=== PATIENT | female | born 1960 | race African-American/Black ===

== ENCOUNTER 2017-04-29 08:22 | Emergency (ER) | payer OTHER, SELFPAY | END 2017-04-29 08:54 | disposition home or self-care (01) | LOC: ERS 08:22 | DX: J06.9 Acute upper respiratory infection, unspecified (principal); I10 Essential (primary) hypertension; F41.9 Anxiety disorder, unspecified; F32.9 Major depressive disorder, single episode, unspecified; F17.210 Nicotine dependence, cigarettes, uncomplicated | CPT/HCPCS: 99283 ==

== ENCOUNTER 2017-09-10 14:41 | Outpatient (CLI) | payer OTHER | END 2017-09-10 14:42 | disposition home or self-care (01) | LOC: BICMAMMO 14:41 | PROVIDERS: ATTEND Student in an Organized Health Care Education/Training Program | DX: N63.20 Unspecified lump in the left breast, unspecified quadrant (principal); Z80.3 Family history of malignant neoplasm of breast | CPT/HCPCS: 77066; G0279 ==

== ENCOUNTER 2018-12-18 09:25 | Outpatient (CLI) | payer MEDICARE ==
--- NOTE | 2018-12-18 12:46 | MRI ---
MRI LEFT KNEE: Date: 12/18/18 PROVIDED CLINICAL HISTORY: Left knee pain and swelling. FINDINGS: Comparison with 08/27/14. The anterior cruciate ligament, posterior cruciate ligament, medial collateral ligament, and lateral collateral ligamentous complex demonstrate an intact MR appearance, as does the extensor mechanism. There is a complex nondisplaced tear involving the body and posterior horn of the medial meniscus, edgar ving a primarily parrot-beak type morphology. The lateral meniscus demonstrates no evidence for tear. No focal articular cartilage defect is apparent. Signal inhomogeneity involves the median ridge of th e patella, likely reflecting low grade chondrosis. There is marrow edema within the medial femoral condyles centrally presumably reactive to the menisca l tear. Regional marrow and muscular signal appear otherwise unremarkable. There is a mild-moderate knee joint effusion with Galvan's cyst formation. IMPRESSION: 1. Medial meniscal tear as described. 2. Low grade patellar chondrosis. 3. Mild-moderate knee joint effusion with Galvan's cyst formation. POS: OFF
== END 2018-12-18 09:26 | disposition home or self-care (01) ==
LOC: BICMRI 09:25
PROVIDERS: ATTEND Orthopaedic Surgery
DX: M23.92 Unspecified internal derangement of left knee (principal); M25.462 Effusion, left knee; M22.2X2 Patellofemoral disorders, left knee; M71.22 Synovial cyst of popliteal space [Baker], left knee

== ENCOUNTER 2019-01-14 11:00 | Outpatient (CLI) | payer MEDICARE ==
[2019-01-14 11:55] LABS: #Basophils 0.1 thou/uL (0.0-0.2); #Eosinphils 0.1 thou/uL (0.0-0.7); #Lymphocytes 3.9 thou/uL (1.20-3.40); #Monocytes 0.9 thou/uL (0.11-0.59); #Neutrophils 4.6 thou/uL (1.40-6.50); %Basophils 0.7 % (0.0-1.0); %Eosinophils 0.9 % (0.0-10.0); %Lymphocytes 40.6 % (21.0-51.0); %Monocytes 9.5 % (0.0-10.0); %Neutrophils 48.3 % (42.0-75.0); Hemoglobin 13.2 g/dL (12.0-16.0); Mean Corpuscular HGB CONC 33.1 g/dL (32.0-36.0); Mean Corpuscular Hemoglobin 29.6 pg (27.0-31.0); Mean Corpuscular Volume 89.5 fL (78.0-98.0); Mean Platelet Volume 8.6 fL (7.4-10.4); Platelet Count 275 thou/uL (130-400); RBC Distribution Width 13.5 % (11.5-14.5); Red Blood Cell (RBC) Count 4.46 mill/uL (4.20-5.40); White Blood Cell (WBC) Count 9.5 thou/uL (4.8-10.8)
[2019-01-14 12:22] LABS: Anion Gap 11 mmol/L (10-20); BUN (Urea Nitrogen) 13 mg/dL (9.8-20.1); Calc. Creatinine Clearance 0 mL/min (70-130); Calcium 9.6 mg/dL (7.8-10.44); Carbon Dioxide 30 mmol/L (22-29); Chloride 104 mmol/L (98-107); Estimated GFR-MDRD 84; Glucose 107 mg/dL (70-105); Potassium 3.5 mmol/L (3.5-5.1); Sodium 141 mmol/L (136-145)
== END 2019-01-14 11:01 | disposition home or self-care (01) ==
LOC: LABBT 11:00
PROVIDERS: ATTEND Orthopaedic Surgery
DX: Z01.818 Encounter for other preprocedural examination (principal); S83.242D Other tear of medial meniscus, current injury, left knee, subsequent encounter
CPT/HCPCS: 80048; 85025; 93005; 93010

== ENCOUNTER 2019-01-22 07:21 | Day surgery (SDC) | payer MEDICARE ==
[2019-01-14 11:13] VITALS: BMI 36.9
[2019-01-22] MEDS ORDERED: PROPOFOL 20 ML ONE (08:20)
[2019-01-22] MEDS ORDERED: Bupivacaine HCl 0.5%/Epinephrine 1:200,000/PF 30 ml Vial ONE (09:43)
[2019-01-22] MEDS ORDERED: Ropivacaine 0.2% HCl/PF (40 MG/20 ML VIAL) ONE (09:43)
[2019-01-22] MEDS ORDERED: Ketorolac Tromethamine 30 MG/ML VIAL ONE (09:52)
[2019-01-22] MEDS ORDERED: Dexamethasone 20 MG/5 ML VIAL ONE (09:52)
[2019-01-22] MEDS ORDERED: PROPOFOL 200 MG/20 ML VIAL ONE (09:52)
[2019-01-22] MEDS ORDERED: Ondansetron PF 4 MG/2 ML Vial ONE (09:52)
[2019-01-22] MEDS ORDERED: HYDROcodone/Acetaminophen 5/325 mg Tablet ONE ×2 (11:24)
--- NOTE | 2019-01-22 12:58 | OP ---
DATE OF PROCEDURE: 01/22/2019 PREOPERATIVE DIAGNOSIS: Medial meniscus tear, left knee. POSTOPERATIVE DIAGNOSIS: Medial meniscus tear, left knee. PROCEDURE PERFORMED: Arthroscopic partial medial meniscectomy. ANESTHESIA: General. ESTIMATED BLOOD LOSS: Minimal. SPECIMENS: None. DRAINS: None. COMPLICATIONS: None. FINDINGS OF SURGERY: Posterior horn of medial meniscus tear, intact lateral meniscus, intact ACL. Really minimal degenerative changes throughout the knee, grade 2 medial femoral condyle. DESCRIPTION OF PROCEDURE: The patient was taken to the operating room, where general anesthesia was induced. She was seen and answered preoperatively. Left leg was prepped and draped in sterile fashion. Scope was placed in the lateral portal, probe was placed in the medial portal. Findings were as above. I performed a partial medial meniscectomy using basket forceps and smoothed using a 4.0 full-radius resector. I then probed the posterior horn of the medial meniscus and confirmed it was stable. Knee was irrigated and drained. Sterile dressings applied. Job ID: [id number]
== END 2019-01-22 13:45 | disposition home or self-care (01) ==
LOC: SDC 07:21
PROVIDERS: ATTEND Orthopaedic Surgery
PROC: 0SBD4ZZ Excision of Left Knee Joint, Percutaneous Endoscopic Approach (ICD-10-PCS; principal; 2019-01-22)
DX: S83.242A Other tear of medial meniscus, current injury, left knee, initial encounter (principal); I10 Essential (primary) hypertension; E78.5 Hyperlipidemia, unspecified; X58.XXXA Exposure to other specified factors, initial encounter; Z79.899 Other long term (current) drug therapy; Z88.5 Allergy status to narcotic agent
CPT/HCPCS: J0690; J2704

== ENCOUNTER 2019-03-05 15:00 | Outpatient (CLI) | payer MEDICARE ==
--- NOTE | 2019-03-05 15:46 | MRI ---
MR OF THE RIGHT KNEE WITHOUT CONTRAST INDICATION: Right knee pain without injury; concern for medial meniscal tear TECHNIQUE: Axial and coronal PD fat sat, sagittal T2 fat sat, sagittal PD turbo spin echo and T1 mauro nal images were obtained of the right knee. COMPARISON: None. FINDINGS: Joint effusion: Small joint effusion Semimembranosus-medial gastrocnemius popliteal cyst: Moderate sized Galvan's cyst Ligaments: The ACL, PCL, MCL and LCLC are intact. Extensor mechanism: Intact. Menisci: There is a full-thickness radial tear involving the posterior root of the medial meniscus wi th partial medial extrusion. There is intrasubstance degenerative signal involving the posterior body and posterior horn of the medial meniscus. The lateral meniscus is intact. Articular cartilage: There is diffuse moderate thinning involving the medial femorotibial joint adama rtment with small marginal osteophytes. There is mild articular cartilage thinning involving the medial patellar facet and lower median patellar ridge. Articular cartilage of the lateral femoral tib ial compartments appears relatively well-maintained. Osseous structures: There is a subchondral insufficiency fracture involving medial femoral condyle ce ntrally on image 13 of series 7 and image 16 of series 4 with surrounding marrow edema. Popliteus and IT band: Normal. IMPRESSION: 1. Mild osteoarthrosis of the right knee. 2. Medial meniscal tear. 3. Small subchondral insufficiency fracture the medial femoral condyle with surrounding marrow edema.
== END 2019-03-05 15:01 | disposition home or self-care (01) ==
LOC: MRI 15:00
PROVIDERS: ATTEND Orthopaedic Surgery
DX: S83.241A Other tear of medial meniscus, current injury, right knee, initial encounter (principal); M17.11 Unilateral primary osteoarthritis, right knee; S72.431A Displaced fracture of medial condyle of right femur, initial encounter for closed fracture

== ENCOUNTER 2019-04-17 10:30 | Outpatient (CLI) | payer MEDICARE ==
[2019-04-17 13:30] LABS: Hemoglobin 12.4 g/dL (12.0-16.0); Mean Corpuscular HGB CONC 33.1 g/dL (32.0-36.0); Mean Corpuscular Hemoglobin 30.2 pg (27.0-31.0); Platelet Count 273 thou/uL (130-400); White Blood Cell (WBC) Count 9.9 thou/uL (4.8-10.8)
[2019-04-17 13:50] LABS: Anion Gap 12 mmol/L (10-20); BUN (Urea Nitrogen) 16 mg/dL (9.8-20.1); Calc. Creatinine Clearance 0 mL/min (70-130); Calcium 8.5 mg/dL (7.8-10.44); Carbon Dioxide 26 mmol/L (22-29); Chloride 108 mmol/L (98-107); Estimated GFR-MDRD Greater than 90; Glucose 91 mg/dL (70-105); Potassium 3.9 mmol/L (3.5-5.1); Sodium 142 mmol/L (136-145)
== END 2019-04-17 10:31 | disposition home or self-care (01) ==
LOC: LABBT 10:30
PROVIDERS: ATTEND Orthopaedic Surgery
DX: Z01.812 Encounter for preprocedural laboratory examination (principal); S83.241A Other tear of medial meniscus, current injury, right knee, initial encounter
CPT/HCPCS: 80048; 85027

== ENCOUNTER 2019-04-21 09:33 | Day surgery (SDC) | payer MEDICARE ==
[2019-04-17 13:03] VITALS: BMI 36.1
[2019-04-21] MEDS ORDERED: Bupivacaine HCl 0.5%/Epinephrine 1:200,000/PF 30 ml Vial ONE (10:21)
[2019-04-21] MEDS ORDERED: PROPOFOL 200 MG/20 ML VIAL ONE (10:21)
[2019-04-21] MEDS ORDERED: Ondansetron PF 4 MG/2 ML Vial ONE ×2 (10:21→12:40)
[2019-04-21] MEDS ORDERED: Lidocaine 2% w/Epinephrine 1:200K 20 ML VIAL ONE (10:21)
[2019-04-21] MEDS ORDERED: Dexamethasone 20 MG/5 ML VIAL ONE ×2 (10:21→12:40)
[2019-04-21] MEDS ORDERED: PROPOFOL 20 ML ONE (11:38)
[2019-04-21] MEDS ORDERED: Fentanyl 100 MCG/2 ML VIAL ONE (12:28)
[2019-04-21] MEDS ORDERED: Meperidine HCl/PF 25 MG/ML VIAL ONE (13:22)
--- NOTE | 2019-04-23 11:10 | OP ---
DATE OF PROCEDURE: 04/21/2019 PREOPERATIVE DIAGNOSIS: Medial meniscus tear, right knee. POSTOPERATIVE DIAGNOSES: 1. Medial meniscus tear, right knee. 2. Grade 3 chondromalacia of the medial femoral condyle. ANESTHESIA: General. BLOOD LOSS: Minimal. SPECIMEN: None. DRAINS: None. COMPLICATIONS: None. DESCRIPTION OF PROCEDURE: The patient was taken to the operating room, where general anesthesia was induced. The right lower extremity was prepped and draped in sterile fashion. Scope was placed in the lateral portal, probe was placed in the medial portal. Patellofemoral joint has mild arthritis. Lateral compartment was completely intact. ACL was intact. The medial compartment had a posterior horn medial meniscus tear and chondral flap tear in the medial femoral condyle. I debrided the medial femoral condyle with a shaver and debrided the posterior meniscus using basket forceps, smoothed using a 4-0 full-radius resector. The knee was then irrigated. Gutters were swept. Suprapatellar pouch was examined for loose bodies, there were no loose bodies. The knee was drained. Sterile dressings applied. Job ID: [id number]
== END 2019-04-21 14:45 | disposition home or self-care (01) ==
LOC: SDC 09:33
PROVIDERS: ATTEND Orthopaedic Surgery
PROC: 0SBC4ZZ Excision of Right Knee Joint, Percutaneous Endoscopic Approach (ICD-10-PCS; principal; 2019-04-21)
DX: S83.241A Other tear of medial meniscus, current injury, right knee, initial encounter (principal); M94.261 Chondromalacia, right knee; M17.11 Unilateral primary osteoarthritis, right knee; I10 Essential (primary) hypertension; E78.5 Hyperlipidemia, unspecified; Z79.83 Long term (current) use of bisphosphonates; Z79.899 Other long term (current) drug therapy; Z88.5 Allergy status to narcotic agent
CPT/HCPCS: J0670; J0690; J1100; J2175; J2405; J2704; J3010

== ENCOUNTER 2020-08-24 09:01 | Outpatient (CLI) | payer MEDICARE | END 2020-08-24 09:02 | disposition home or self-care (01) | LOC: BICMAMMO 09:01 | PROVIDERS: ATTEND Family Medicine | DX: Z12.31 Encounter for screening mammogram for malignant neoplasm of breast (principal); Z80.3 Family history of malignant neoplasm of breast | CPT/HCPCS: 77063; 77067 ==

== ENCOUNTER 2020-10-18 08:58 | Outpatient (CLI) | payer MEDICARE ==
[2020-10-18] MEDS ORDERED: Iopamidol-370 76% 500 ML 1 ML ONE (09:29)
== END 2020-10-18 08:59 | disposition home or self-care (01) ==
LOC: BICCT 08:58
PROVIDERS: ATTEND Internal Medicine
DX: C16.9 Malignant neoplasm of stomach, unspecified (principal)
CPT/HCPCS: 71260; 74177; Q9967

== ENCOUNTER 2020-10-27 10:17 | Outpatient (CLI) | payer MEDICARE | END 2020-10-27 10:18 | disposition home or self-care (01) | LOC: PET 10:17 | PROVIDERS: ATTEND Internal Medicine Hematology & Oncology | DX: C16.0 Malignant neoplasm of cardia (principal); K31.89 Other diseases of stomach and duodenum | CPT/HCPCS: 78815; A9552 ==

== ENCOUNTER 2020-11-18 12:09 | Day surgery (SDC) | payer MEDICARE ==
[2020-11-17 13:16] VITALS: BMI 35.9
[2020-11-18] MEDS ORDERED: Bupivacaine 0.25% HCL 30 ML VIAL ONE (13:27)
[2020-11-18] MEDS ORDERED: Lidocaine 1% w/Epinephrine 1:100K 20 ML VIAL ONE (13:27)
[2020-11-18 14:04] LABS: Anion Gap 10 mmol/L (10-20); BUN (Urea Nitrogen) 21 mg/dL (9.8-20.1); Calc. Creatinine Clearance 89 mL/min (70-130); Calcium 9.2 mg/dL (7.8-10.44); Carbon Dioxide 30 mmol/L (22-29); Chloride 106 mmol/L (98-107); Glucose 79 mg/dL (70-105); Potassium 3.9 mmol/L (3.5-5.1); Sodium 142 mmol/L (136-145)
[2020-11-18] MEDS ORDERED: Fentanyl 100 MCG/2 ML VIAL ONE (14:05)
[2020-11-18] MEDS ORDERED: Propofol 1,000 MG/100 ML VIAL IV ONE (14:05)
[2020-11-18] MEDS ORDERED: Midazolam HCl 2 mg/2 ml Vial ONE (14:05)
[2020-11-18] MEDS ORDERED: PROPOFOL 200 MG/20 ML VIAL ONE (14:12)
[2020-11-18] MEDS ORDERED: Ketorolac Tromethamine 30 MG/ML VIAL ONE (14:12)
[2020-11-18] MEDS ORDERED: Dexamethasone 20 MG/5 ML VIAL ONE (14:12)
[2020-11-18] MEDS ORDERED: Ondansetron PF 4 MG/2 ML Vial ONE (14:12)
[2020-11-18] MEDS ORDERED: HYDROcodone/Acetaminophen 5/325 mg Tablet ONE (15:18)
== END 2020-11-18 15:50 | disposition home or self-care (01) ==
LOC: SDC 12:09
PROVIDERS: ATTEND Surgery
PROC: 0JH60WZ Insertion of Totally Implantable Vascular Access Device into Chest Subcutaneous Tissue and Fascia, Open Approach (ICD-10-PCS; principal; 2020-11-18)
PROC: 02HV33Z Insertion of Infusion Device into Superior Vena Cava, Percutaneous Approach (ICD-10-PCS; 2020-11-18)
DX: C16.9 Malignant neoplasm of stomach, unspecified (principal); I10 Essential (primary) hypertension; E78.5 Hyperlipidemia, unspecified; M19.90 Unspecified osteoarthritis, unspecified site; J45.909 Unspecified asthma, uncomplicated; M81.0 Age-related osteoporosis without current pathological fracture; Z79.83 Long term (current) use of bisphosphonates; Z79.899 Other long term (current) drug therapy; Z88.5 Allergy status to narcotic agent
CPT/HCPCS: 36561; 71045; 80048; C1788; 36415; J0690; J1100; J1642; J1885; J2250; J2405; J2704; J3010; S0020

== ENCOUNTER 2020-12-05 09:20 | Day surgery (SDC) | payer MEDICARE ==
[2020-12-05] MEDS ORDERED: Palonosetron HCl 0.25 MG in Sodium Chloride 0.9% 50 ML IVPB SCH (09:30)
[2020-12-05] MEDS ORDERED: Leucovorin Calcium 350 MG in Sodium Chloride 0.9% 50 ML IVPB SCH (09:30)
[2020-12-05] MEDS ORDERED: Pegfilgrastim Onpro 6 MG/0.6 ML SQ SCH (09:45)
[2020-12-05] MEDS ORDERED: SODIUM CHLORIDE 0.9% IVPB SCH (09:45)
[2020-12-05] MEDS ORDERED: DOCETAXEL IVPB SCH (09:45)
[2020-12-05] MEDS ORDERED: Sodium Chloride 0.9% 20 ML ONE (10:02)
[2020-12-05 12:11] VITALS: BP 127/64; TEMP 98.4
== END 2020-12-05 14:37 | disposition home or self-care (01) ==
LOC: ONC/OP 09:20
PROVIDERS: ATTEND Internal Medicine Hematology & Oncology
DX: Z51.11 Encounter for antineoplastic chemotherapy (principal); C16.0 Malignant neoplasm of cardia; D50.0 Iron deficiency anemia secondary to blood loss (chronic); Z88.5 Allergy status to narcotic agent
CPT/HCPCS: 80053; 96372; 96375; 96377; 96413; 96415; 96417; J0640; J1100; J1453; J2469; J2505; J3490; J7050; J7070; J9171; J9263

== ENCOUNTER 2020-12-06 11:25 | Inpatient (IN) | payer MEDICARE ==
[2020-12-06 12:04] LABS: #Lymphocytes 1.2 thou/uL (1.20-3.40); #Monocytes 0.4 thou/uL (0.11-0.59); #Neutrophils 8.7 thou/uL (1.40-6.50); %Basophils 0.1 % (0.0-1.0); %Eosinophils 0.2 % (0.0-10.0); %Lymphocytes 11.7 % (21.0-51.0); %Monocytes 4.2 % (0.0-10.0); %Neutrophils 83.9 % (42.0-75.0); Hemoglobin 12.5 g/dL (12.0-16.0); Mean Corpuscular HGB CONC 32.6 g/dL (32.0-36.0); Mean Corpuscular Hemoglobin 30.1 pg (27.0-31.0); Mean Corpuscular Volume 92.5 fL (78.0-98.0); Mean Platelet Volume 8.2 fL (7.4-10.4); Platelet Count 270 thou/uL (130-400); RBC Distribution Width 12.9 % (11.5-14.5); Red Blood Cell (RBC) Count 4.16 mill/uL (4.20-5.40); White Blood Cell (WBC) Count 10.4 thou/uL (4.8-10.8)
[2020-12-06] MEDS ORDERED: Morphine 4 MG/ML VIAL ONE (12:28)
[2020-12-06] MEDS ORDERED: Ondansetron PF 4 MG/2 ML Vial ONE (12:28)
[2020-12-06 12:36] LABS: ALT (SGPT) 22 U/L (8-55); AST (SGOT) 15 U/L (5-34); Alkaline Phosphatase 85 U/L (40-110); Anion Gap 12 mmol/L (10-20); BUN (Urea Nitrogen) 17 mg/dL (9.8-20.1); Bilirubin, Total 0.5 mg/dL (0.2-1.2); Calc. Creatinine Clearance 0 mL/min (70-130); Calcium 9.1 mg/dL (7.8-10.44); Carbon Dioxide 28 mmol/L (22-29); Chloride 103 mmol/L (98-107); Globulin 3.3 g/dL (2.4-3.5); Glucose 153 mg/dL (70-105); Lipase 23 U/L (8-78); Potassium 3.8 mmol/L (3.5-5.1); Protein, Total 7.3 g/dL (6.0-8.3); Sodium 139 mmol/L (136-145)
[2020-12-06] MEDS ORDERED: Morphine 2 MG/ML VIAL ONE ×2 (14:16→15:17)
[2020-12-06] MEDS ORDERED: Mag-Al Plus 1200 MG/1200 MG/120 MG/30 ML UDCUP PO PRN (16:18)
[2020-12-06] MEDS ORDERED: Morphine 2 MG/ML VIAL SLOW IVP PRN (16:18)
[2020-12-06] MEDS ORDERED: Acetaminophen 325 MG TAB PO PRN (16:18)
[2020-12-06] MEDS ORDERED: hydrALAZINE 20 MG/ML VIAL SLOW IVP PRN (16:18)
[2020-12-06] MEDS ORDERED: HYDROcodone/Acetaminophen 5/325 mg Tablet PO PRN (17:04)
[2020-12-06 17:07] VITALS: BMI 36.4
[2020-12-06 17:08] LABS: Troponin I Less than 0.010 ng/mL (< 0.028)
[2020-12-06] MEDS ORDERED: Ketorolac Tromethamine 30 MG/ML VIAL IVP SCH (18:45)
[2020-12-06] MEDS ORDERED: methylPREDNISolone Sod Succ/PF 125 MG/2 ML VIAL IVP SCH ×2 (18:46→19:00)
[2020-12-06 20:33] LABS: Troponin I Less than 0.010 ng/mL (< 0.028)
[2020-12-06] MEDS: Famotidine 20 MG TAB PO SCH (22:09)
[2020-12-06] MEDS: Sodium Chloride 0.9% 1,000 ML IV SCH (22:10)
[2020-12-07] MEDS ORDERED: Sodium Chloride 0.9% 10 ML ONE (00:21)
[2020-12-07] MEDS: Ketorolac Tromethamine 30 MG/ML VIAL IVP SCH ×5 (00:27→23:52)
[2020-12-07 04:33] LABS: #Basophils 0.1 thou/uL (0.0-0.2); #Lymphocytes 0.7 thou/uL (1.20-3.40); #Monocytes 0.2 thou/uL (0.11-0.59); #Neutrophils 4.5 thou/uL (1.40-6.50); %Basophils 1.2 % (0.0-1.0); %Lymphocytes 12.5 % (21.0-51.0); %Monocytes 3.4 % (0.0-10.0); Hemoglobin 12.6 g/dL (12.0-16.0); Mean Corpuscular HGB CONC 33.2 g/dL (32.0-36.0); Mean Corpuscular Hemoglobin 30.5 pg (27.0-31.0); Mean Corpuscular Volume 91.7 fL (78.0-98.0); Mean Platelet Volume 8.5 fL (7.4-10.4); Platelet Count 243 thou/uL (130-400); RBC Distribution Width 12.8 % (11.5-14.5); Red Blood Cell (RBC) Count 4.12 mill/uL (4.20-5.40); White Blood Cell (WBC) Count 5.4 thou/uL (4.8-10.8)
[2020-12-07 04:47] LABS: Anion Gap 14 mmol/L (10-20); BUN (Urea Nitrogen) 23 mg/dL (9.8-20.1); Calc. Creatinine Clearance 79 mL/min (70-130); Calcium 8.8 mg/dL (7.8-10.44); Carbon Dioxide 27 mmol/L (22-29); Chloride 101 mmol/L (98-107); Glucose 195 mg/dL (70-105); Sodium 138 mmol/L (136-145)
[2020-12-07 07:59] LABS: SARS-CoV-2 PCR by NAA Not Detected (NotDetected)
[2020-12-07] MEDS: Diazepam 5 MG TAB PO SCH (08:43)
[2020-12-07] MEDS: Calcium Carbonate 600 MG TAB PO SCH (08:43)
[2020-12-07] MEDS: Famotidine 20 MG TAB PO SCH ×2 (08:43→20:15)
[2020-12-07] MEDS: Sodium Chloride 0.9% 1,000 ML IV SCH ×2 (08:44→20:20)
[2020-12-07] MEDS: Meclizine HCl 25 MG TAB PO SCH (11:47)
[2020-12-07] MEDS ORDERED: CEFAZOLIN 1 GM VIAL ONE (15:37)
[2020-12-07] MEDS ORDERED: Lidocaine 1% (PF) 30 ML VIAL ONE ×2 (15:37→16:31)
[2020-12-07] MEDS ORDERED: Gentamicin 80 MG/2 ML VIAL ONE (15:37)
[2020-12-07] MEDS ORDERED: Midazolam HCl 2 mg/2 ml Vial ONE ×2 (16:25→16:30)
[2020-12-07] MEDS ORDERED: Atorvastatin Calcium 40 MG TAB PO SCH (21:00)
[2020-12-08] MEDS: Ketorolac Tromethamine 30 MG/ML VIAL IVP SCH (05:58)
[2020-12-08] MEDS: Famotidine 20 MG TAB PO SCH (08:14)
[2020-12-08] MEDS: Calcium Carbonate 600 MG TAB PO SCH (08:14)
[2020-12-08] MEDS: Meclizine HCl 25 MG TAB PO SCH (08:14)
[2020-12-08] MEDS: Diazepam 5 MG TAB PO SCH (08:14)
[2020-12-08 08:24] VITALS: BP 142/84; TEMP 97.6
[2020-12-19] MEDS ORDERED: PEGFILGRASTIM-JMDB 6 MG/0.6 ML SYRINGE SQ SCH (09:00)
== END 2020-12-08 11:05 | disposition home health service (06) | DRG 243 ==
LOC: ERS 11:25 → ERHOLD 14:11 → 2NO 15:35 → OBSVTOIN 12-07 10:10
PROVIDERS: ADMIT Internal Medicine; ATTEND Internal Medicine
PROC: 0JH606Z Insertion of Pacemaker, Dual Chamber into Chest Subcutaneous Tissue and Fascia, Open Approach (ICD-10-PCS; principal; 2020-12-07)
PROC: 02HK0JZ Insertion of Pacemaker Lead into Right Ventricle, Open Approach (ICD-10-PCS; 2020-12-07)
PROC: 02H60JZ Insertion of Pacemaker Lead into Right Atrium, Open Approach (ICD-10-PCS; 2020-12-07)
PROC: 4A023N7 Measurement of Cardiac Sampling and Pressure, Left Heart, Percutaneous Approach (ICD-10-PCS; 2020-12-07)
PROC: B2151ZZ Fluoroscopy of Left Heart using Low Osmolar Contrast (ICD-10-PCS; 2020-12-07)
PROC: B2111ZZ Fluoroscopy of Multiple Coronary Arteries using Low Osmolar Contrast (ICD-10-PCS; 2020-12-07)
DX: R00.1 Bradycardia, unspecified (principal); C16.9 Malignant neoplasm of stomach, unspecified; Q85.8 Other phakomatoses, not elsewhere classified; C16.0 Malignant neoplasm of cardia; Z20.822 Contact with and (suspected) exposure to COVID-19; M94.0 Chondrocostal junction syndrome [Tietze]; J45.909 Unspecified asthma, uncomplicated; D64.9 Anemia, unspecified; E78.5 Hyperlipidemia, unspecified; Z90.710 Acquired absence of both cervix and uterus; Z88.6 Allergy status to analgesic agent; Z87.891 Personal history of nicotine dependence; Z79.899 Other long term (current) drug therapy; Z51.11 Encounter for antineoplastic chemotherapy; D50.0 Iron deficiency anemia secondary to blood loss (chronic)
CPT/HCPCS: 33211; 36415; 36416; 71045; 80048; 80053; 83690; 84484; 85025; 93005; 93010; 93306; 94760; 96372; 96374; 96375; 96376; 96377; 96413; 96415; 96417; 99152; 99153; C1785; C1898; G0378; J0640; J0690; J1100; J1453; J1580; J1642; J1885; J2001; J2250; J2270; J2405; J2469; J2505; J2930; J3490; J7050; J7070; J9171; J9263; Q5108; U0003; U0005

== ENCOUNTER 2020-12-19 09:23 | Day surgery (SDC) | payer MEDICARE ==
[~2020-12-19 09:23] MED LIST: DOCETAXEL IVPB SCH; Leucovorin Calcium 350 MG in Sodium Chloride 0.9% 50 ML IVPB SCH; PALONOSETRON HCL 0.05 MG/ML 5 ML VIAL IVP SCH; Palonosetron HCl 0.25 MG in Sodium Chloride 0.9% 50 ML IVPB SCH; SODIUM CHLORIDE 0.9% IVPB SCH; Sodium Chloride 0.9% 20 ML ONE
[2020-12-19 09:47] VITALS: BP 151/84; TEMP 98.2
== END 2020-12-19 13:48 | disposition home or self-care (01) ==
LOC: ONC/OP 09:23
PROVIDERS: ATTEND Internal Medicine Hematology & Oncology
DX: Z51.11 Encounter for antineoplastic chemotherapy (principal); C16.0 Malignant neoplasm of cardia; D50.0 Iron deficiency anemia secondary to blood loss (chronic); Z79.82 Long term (current) use of aspirin; Z79.899 Other long term (current) drug therapy; Z88.5 Allergy status to narcotic agent
CPT/HCPCS: 36415; 80053; 96367; 96375; 96413; 96415; 96417; J0640; J1100; J1453; J2469; J3490; J7050; J7070; J9171; J9263

== ENCOUNTER 2020-12-20 08:30 | Observation (INO) | payer MEDICARE ==
[2020-12-20] MEDS ORDERED: Iopamidol-370 76% 500 ML 1 ML ONE (09:25)
[2020-12-20 09:50] LABS: ALT (SGPT) 27 U/L (8-55); AST (SGOT) 20 U/L (5-34); Albumin 3.8 g/dL (3.5-5.0); Alkaline Phosphatase 136 U/L (40-110); Anion Gap 14 mmol/L (10-20); BUN (Urea Nitrogen) 23 mg/dL (9.8-20.1); Bilirubin, Total 0.4 mg/dL (0.2-1.2); Calc. Creatinine Clearance 0 mL/min (70-130); Carbon Dioxide 28 mmol/L (22-29); Chloride 100 mmol/L (98-107); Glucose 478 mg/dL (70-105); Lipase 38 U/L (8-78); Potassium 4.5 mmol/L (3.5-5.1); Protein, Total 6.8 g/dL (6.0-8.3); Sodium 137 mmol/L (136-145)
[2020-12-20] MEDS ORDERED: Morphine 4 MG/ML VIAL ONE ×3 (09:59→14:27)
[2020-12-20] MEDS ORDERED: Ondansetron PF 4 MG/2 ML Vial ONE (09:59)
[2020-12-20] MEDS ORDERED: Aspirin Chewable 81 MG TAB ONE (10:15)
[2020-12-20 10:20] LABS: Anisocytosis SLIGHT = 6-15 cells (100X) (0-5/hpf); Band 11 % (5-11); Hemoglobin 11.2 g/dL (12.0-16.0); Lymphocytes 5 % (21-51); MDiff Complete? YES; Mean Corpuscular HGB CONC 32.9 g/dL (32.0-36.0); Mean Corpuscular Hemoglobin 30.3 pg (27.0-31.0); Mean Corpuscular Volume 92.3 fL (78.0-98.0); Metamyelocyte 3 % (0-0); Monocytes 3 % (0-10); Myelocyte 2 % (0-0); Neutrophil 75 % (42-75); Nucleated RBC 5 % (0); Platelet Count 93 thou/uL (130-400); Platelet Morphology Comment Appears Decreased; Polychromasia MODERATE = 3-4 cells (100X) (0-2/hpf); RBC Distribution Width 13.7 % (11.5-14.5); Reactive Lymphocytes 2 % (0-10); Red Blood Cell (RBC) Count 3.71 mill/uL (4.20-5.40); White Blood Cell (WBC) Count 27.1 thou/uL (4.8-10.8)
[2020-12-20] MEDS ORDERED: Nitroglycerin 2% Ointment 1 INCH/1 GM Packet ONE (12:15)
[2020-12-20] MEDS ORDERED: Aspirin 325 MG TAB PO SCH (14:00)
[2020-12-20] MEDS: Morphine 4 MG/ML VIAL SLOW IVP PRN ×2 (14:35→22:44)
[2020-12-20 16:57] LABS: Troponin I Less than 0.010 ng/mL (< 0.028)
[2020-12-20 17:21] LABS: SARS-CoV-2 NAA Rapid Test Not Detected (NotDetected)
[2020-12-20 18:40] VITALS: BMI 37.3
[2020-12-20 19:03] LABS: Troponin I Less than 0.010 ng/mL (< 0.028)
[2020-12-21 06:29] LABS: Cardiac Risk 3.6 (Less than 4.5)
[2020-12-21] MEDS: Atorvastatin Calcium 40 MG TAB PO SCH (08:58)
[2020-12-21] MEDS: Aspirin Chewable 81 MG TAB PO SCH (08:58)
[2020-12-21] MEDS ORDERED: HYDROcodone/Acetaminophen 5/325 mg Tablet PO PRN (10:06)
[2020-12-22] MEDS ORDERED: Communication Order-Pharmacy FS SCH (01:00)
[2020-12-22 04:28] LABS: Anion Gap 12 mmol/L (10-20); BUN (Urea Nitrogen) 21 mg/dL (9.8-20.1); Calc. Creatinine Clearance 100 mL/min (70-130); Calcium 8.9 mg/dL (7.8-10.44); Carbon Dioxide 28 mmol/L (22-29); Chloride 98 mmol/L (98-107); Glucose 255 mg/dL (70-105); Potassium 4.5 mmol/L (3.5-5.1); Sodium 133 mmol/L (136-145)
[2020-12-22] MEDS ORDERED: Sodium Chloride 0.9% 1,000 ML IV SCH (06:00)
[2020-12-22] MEDS: Magnesium Oxide 400 MG TAB PO SCH ×2 (06:15→06:16)
[2020-12-22] MEDS: Aspirin Chewable 81 MG TAB PO SCH (06:15)
[2020-12-22 06:37] LABS: Band 2 % (5-11); Hemoglobin 11.4 g/dL (12.0-16.0); Lymphocytes 50 % (21-51); MDiff Complete? YES; Mean Corpuscular HGB CONC 31.9 g/dL (32.0-36.0); Mean Corpuscular Hemoglobin 29.2 pg (27.0-31.0); Mean Corpuscular Volume 91.7 fL (78.0-98.0); Mean Platelet Volume 10.9 fL (7.4-10.4); Monocytes 4 % (0-10); Neutrophil 44 % (42-75); Platelet Count 129 thou/uL (130-400); Platelet Morphology Comment Appears Decreased; RBC Distribution Width 13.6 % (11.5-14.5); Red Blood Cell (RBC) Count 3.92 mill/uL (4.20-5.40); White Blood Cell (WBC) Count 5.4 thou/uL (4.8-10.8)
[2020-12-22] MEDS ORDERED: Diazepam 5 MG TAB PO SCH (09:00)
[2020-12-22] MEDS ORDERED: Triamterene/Hydrochlorothiazide 37.5 mg/25 mg Tablet PO SCH (09:00)
[2020-12-22] MEDS ORDERED: Calcium Carbonate 600 MG TAB PO SCH (09:00)
[2020-12-22] MEDS ORDERED: MULTIVIT/IRON SULF/FOLIC ACID 1 EACH TAB PO SCH (09:00)
[2020-12-22] MEDS ORDERED: Iopamidol 370 76% 100 ML VIAL ONE (09:43)
[2020-12-22] MEDS ORDERED: Fentanyl 100 MCG/2 ML VIAL ONE (10:16)
[2020-12-22] MEDS ORDERED: Midazolam HCl 2 mg/2 ml Vial ONE (10:16)
[2020-12-22] MEDS ORDERED: Nitroglycerin 0.4 MG TAB (25 Tab Bottle) SL PRN (11:02)
[2020-12-22] MEDS ORDERED: Acetaminophen/Codeine 30-300mg Tablet PO PRN ×2 (11:02)
[2020-12-22] MEDS ORDERED: Sodium Chloride 0.9% 200 ML IV PRN (11:02)
[2020-12-22] MEDS: Atorvastatin Calcium 40 MG TAB PO SCH (14:42)
[2020-12-22 16:06] VITALS: BP 136/71; TEMP 98.2
== END 2020-12-22 16:34 | disposition home or self-care (01) ==
LOC: ERS 08:30 → ERHOLD 13:13 → 2NO 17:54 → CCU 22:35 → 2NO 22:40
PROVIDERS: ADMIT Internal Medicine; ATTEND Hospitalist
PROC: 4A023N7 Measurement of Cardiac Sampling and Pressure, Left Heart, Percutaneous Approach (ICD-10-PCS; principal; 2020-12-22)
PROC: B2111ZZ Fluoroscopy of Multiple Coronary Arteries using Low Osmolar Contrast (ICD-10-PCS; 2020-12-22)
DX: R07.89 Other chest pain (principal); C16.9 Malignant neoplasm of stomach, unspecified; R00.1 Bradycardia, unspecified; I25.10 Atherosclerotic heart disease of native coronary artery without angina pectoris; I10 Essential (primary) hypertension; E78.5 Hyperlipidemia, unspecified; D72.829 Elevated white blood cell count, unspecified; R79.89 Other specified abnormal findings of blood chemistry; R91.8 Other nonspecific abnormal finding of lung field; M51.34 Other intervertebral disc degeneration, thoracic region; J45.909 Unspecified asthma, uncomplicated; I07.1 Rheumatic tricuspid insufficiency; Z86.73 Personal history of transient ischemic attack (TIA), and cerebral infarction without residual deficits; Z79.83 Long term (current) use of bisphosphonates; Z79.899 Other long term (current) drug therapy; Z88.5 Allergy status to narcotic agent; Z95.0 Presence of cardiac pacemaker; Z20.822 Contact with and (suspected) exposure to COVID-19
CPT/HCPCS: 71045; 71275; 76942; 80048; 80053; 80061; 83690; 84484 ×2; 85025 ×2; 85379; 93005; 93306; 93458; 94760 ×2; 96374; 96375; 96376 ×2; 99285; G0378 ×4; U0002; 36415; 85060; 99152; J1642; J2250; J2270; J2405; J3010; J7050; Q9967

== ENCOUNTER 2021-01-02 08:57 | Day surgery (SDC) | payer MEDICARE ==
[~2021-01-02 08:57] MED LIST changes: -Palonosetron HCl 0.25 MG in Sodium Chloride 0.9% 50 ML IVPB SCH; -Sodium Chloride 0.9% 20 ML ONE
[2021-01-02] MEDS ORDERED: Sodium Chloride 0.9% 20 ML ONE (09:00)
[2021-01-02 10:41] VITALS: BP 135/65; TEMP 97.9
== END 2021-01-02 14:51 | disposition home or self-care (01) ==
LOC: ONC/OP 08:57
PROVIDERS: ATTEND Internal Medicine Hematology & Oncology
DX: Z51.11 Encounter for antineoplastic chemotherapy (principal); C16.0 Malignant neoplasm of cardia; D50.0 Iron deficiency anemia secondary to blood loss (chronic); Z88.5 Allergy status to narcotic agent
CPT/HCPCS: 80053; 96367; 96368; 96375; 96413; 96415; 96416; 96417; J0640; J1100; J1453; J2469; J3490; J7050; J7070; J9171; J9263

== ENCOUNTER 2021-01-04 13:23 | Day surgery (SDC) | payer MEDICARE ==
[~2021-01-04 13:23] MED LIST changes: -DOCETAXEL IVPB SCH; -Leucovorin Calcium 350 MG in Sodium Chloride 0.9% 50 ML IVPB SCH; -PALONOSETRON HCL 0.05 MG/ML 5 ML VIAL IVP SCH; +PEGFILGRASTIM-JMDB 6 MG/0.6 ML SYRINGE SQ SCH; -SODIUM CHLORIDE 0.9% IVPB SCH
[2021-01-04 13:57] VITALS: BP 115/66; TEMP 98
[2021-01-04] MEDS ORDERED: Pegfilgrastim Onpro 6 MG/0.6 ML SQ SCH (14:00)
== END 2021-01-04 15:23 | disposition home or self-care (01) ==
LOC: ONC/OP 13:23
PROVIDERS: ATTEND Internal Medicine Hematology & Oncology
DX: Z76.89 Persons encountering health services in other specified circumstances (principal); C16.0 Malignant neoplasm of cardia; D50.0 Iron deficiency anemia secondary to blood loss (chronic); Z88.5 Allergy status to narcotic agent
CPT/HCPCS: 96377; 96523; J2505

== ENCOUNTER → 2021-01-16 | Day surgery (SDC) | payer MEDICARE ==
[~2021-01-16] MED LIST changes: +DOCETAXEL IVPB SCH; +Leucovorin Calcium 350 MG in Sodium Chloride 0.9% 50 ML IVPB SCH; +PALONOSETRON HCL 0.05 MG/ML 5 ML VIAL IVP SCH; -PEGFILGRASTIM-JMDB 6 MG/0.6 ML SYRINGE SQ SCH; +SODIUM CHLORIDE 0.9% IVPB SCH; +Sodium Chloride 0.9% 20 ML ONE
[2021-01-16 13:21] VITALS: BP 115/69; TEMP 98
== END ==
LOC: ONC/OP 11:44
PROVIDERS: ATTEND Internal Medicine Hematology & Oncology
DX: Z51.11 Encounter for antineoplastic chemotherapy (principal); C16.0 Malignant neoplasm of cardia; D50.0 Iron deficiency anemia secondary to blood loss (chronic); Z88.5 Allergy status to narcotic agent
CPT/HCPCS: 36415; 80053; 96367; 96375; 96413; 96415; 96416; 96417; J0640; J1100; J1453; J2469; J3490; J7050; J7070; J9171; J9263

== ENCOUNTER 2021-01-18 15:47 | Day surgery (SDC) | payer MEDICARE ==
[~2021-01-18 15:47] MED LIST changes: -DOCETAXEL IVPB SCH; -Leucovorin Calcium 350 MG in Sodium Chloride 0.9% 50 ML IVPB SCH; -PALONOSETRON HCL 0.05 MG/ML 5 ML VIAL IVP SCH; +Pegfilgrastim Onpro 6 MG/0.6 ML SQ SCH; -SODIUM CHLORIDE 0.9% IVPB SCH; -Sodium Chloride 0.9% 20 ML ONE
[2021-01-18 16:15] VITALS: BP 150/71
== END 2021-01-18 16:15 | disposition home or self-care (01) ==
LOC: ONC/OP 15:47
PROVIDERS: ATTEND Internal Medicine Hematology & Oncology
DX: Z76.89 Persons encountering health services in other specified circumstances (principal); C16.0 Malignant neoplasm of cardia; D50.0 Iron deficiency anemia secondary to blood loss (chronic); Z88.5 Allergy status to narcotic agent
CPT/HCPCS: 96372; 96377; J2505

== ENCOUNTER 2021-01-31 10:23 | Outpatient (CLI) | payer MEDICARE | END 2021-01-31 10:24 | disposition home or self-care (01) | LOC: PET 10:23 | PROVIDERS: ATTEND Internal Medicine Hematology & Oncology | DX: C16.0 Malignant neoplasm of cardia (principal) | CPT/HCPCS: 78815; A9552 ==

== ENCOUNTER 2021-04-17 09:25 | Day surgery (SDC) | payer MEDICARE ==
[~2021-04-17 09:25] MED LIST changes: +DOCETAXEL IVPB SCH; +Leucovorin Calcium 350 MG in Sodium Chloride 0.9% 50 ML IVPB SCH; +PALONOSETRON HCL 0.05 MG/ML 5 ML VIAL IVP SCH; +Palonosetron HCl 0.25 MG in Sodium Chloride 0.9% 50 ML IVPB SCH; -Pegfilgrastim Onpro 6 MG/0.6 ML SQ SCH; +SODIUM CHLORIDE 0.9% IVPB SCH
[2021-04-17] MEDS ORDERED: Sodium Chloride 0.9% 10 ML ONE (09:56)
[2021-04-17] MEDS ORDERED: PALONOSETRON HCL 0.05 MG/ML 5 ML VIAL ONE (09:56)
[2021-04-17 10:08] VITALS: BP 146/91; TEMP 98.2
== END 2021-04-17 14:11 | disposition home or self-care (01) ==
LOC: ONC/OP 09:25
PROVIDERS: ATTEND Internal Medicine Hematology & Oncology
DX: Z51.11 Encounter for antineoplastic chemotherapy (principal); C16.0 Malignant neoplasm of cardia; D50.0 Iron deficiency anemia secondary to blood loss (chronic); Z88.5 Allergy status to narcotic agent
CPT/HCPCS: 36415; 80053; 96367; 96375; 96413; 96415; 96416; 96417; J0640; J1100; J1453; J2469; J3490; J7050; J7070; J9171; J9263

== ENCOUNTER 2021-04-19 13:39 | Day surgery (SDC) | payer MEDICARE ==
[~2021-04-19 13:39] MED LIST changes: -DOCETAXEL IVPB SCH; -Leucovorin Calcium 350 MG in Sodium Chloride 0.9% 50 ML IVPB SCH; -PALONOSETRON HCL 0.05 MG/ML 5 ML VIAL IVP SCH; -Palonosetron HCl 0.25 MG in Sodium Chloride 0.9% 50 ML IVPB SCH; +Pegfilgrastim Onpro 6 MG/0.6 ML SQ SCH; -SODIUM CHLORIDE 0.9% IVPB SCH
== END 2021-04-19 13:53 | disposition home or self-care (01) ==
LOC: ONC/OP 13:39
PROVIDERS: ATTEND Internal Medicine Hematology & Oncology
DX: Z76.89 Persons encountering health services in other specified circumstances (principal); C16.0 Malignant neoplasm of cardia; D50.0 Iron deficiency anemia secondary to blood loss (chronic); Z88.5 Allergy status to narcotic agent
CPT/HCPCS: 96372; 96377; J2505

== ENCOUNTER 2021-05-01 09:59 | Day surgery (SDC) | payer MEDICARE ==
[~2021-05-01 09:59] MED LIST changes: +DEXTROSE 5% IVPB SCH; +DOCETAXEL IVPB SCH; +OXALIPLATIN IVPB SCH; +PALONOSETRON HCL 0.05 MG/ML 5 ML VIAL IVP SCH; +Palonosetron HCl 0.25 MG in Sodium Chloride 0.9% 50 ML IVPB SCH; -Pegfilgrastim Onpro 6 MG/0.6 ML SQ SCH; +SODIUM CHLORIDE 0.9% IVPB SCH; +WATER IVPB SCH
[2021-05-01] MEDS ORDERED: Sodium Chloride 0.9% 10 ML ONE (10:07)
[2021-05-01] MEDS ORDERED: PALONOSETRON HCL 0.05 MG/ML 5 ML VIAL ONE (10:07)
[2021-05-01 10:28] VITALS: BP 130/72; TEMP 97.9
== END 2021-05-01 13:59 | disposition home or self-care (01) ==
LOC: ONC/OP 09:59
PROVIDERS: ATTEND Internal Medicine Hematology & Oncology
DX: Z51.11 Encounter for antineoplastic chemotherapy (principal); C16.0 Malignant neoplasm of cardia; D50.0 Iron deficiency anemia secondary to blood loss (chronic); Z88.5 Allergy status to narcotic agent
CPT/HCPCS: 36415; 80053; 96367; 96375; 96413; 96415; 96417; J1100; J1453; J1642; J2469; J3490; J7050; J7070; J9171; J9263

== ENCOUNTER 2021-05-22 09:57 | Day surgery (SDC) | payer MEDICARE ==
[~2021-05-22 09:57] MED LIST changes: -Palonosetron HCl 0.25 MG in Sodium Chloride 0.9% 50 ML IVPB SCH
[2021-05-22 10:23] VITALS: BP 134/73; TEMP 98.6
[2021-05-22] MEDS ORDERED: Sodium Chloride 0.9% 10 ML ONE ×2 (11:04)
[2021-05-22] MEDS ORDERED: PALONOSETRON HCL 0.05 MG/ML 5 ML VIAL ONE (11:11)
== END 2021-05-22 16:09 | disposition home or self-care (01) ==
LOC: ONC/OP 09:57
PROVIDERS: ATTEND Internal Medicine Hematology & Oncology
DX: Z51.11 Encounter for antineoplastic chemotherapy (principal); C16.0 Malignant neoplasm of cardia; D50.0 Iron deficiency anemia secondary to blood loss (chronic); Z88.5 Allergy status to narcotic agent
CPT/HCPCS: 36415; 80053; 96367; 96375; 96413; 96415; 96417; J1100; J1453; J1642; J2469; J3490; J7050; J7070; J9171; J9263

== ENCOUNTER 2021-06-12 10:43 | Day surgery (SDC) | payer MEDICARE ==
[2021-06-12] MEDS ORDERED: PALONOSETRON HCL 0.05 MG/ML 5 ML VIAL ONE (10:58)
[2021-06-12] MEDS ORDERED: Sodium Chloride 0.9% 10 ML ONE (10:58)
[2021-06-12 11:26] VITALS: BP 107/63
== END 2021-06-12 15:31 | disposition home or self-care (01) ==
LOC: ONC/OP 10:43
PROVIDERS: ATTEND Internal Medicine Hematology & Oncology
DX: Z51.11 Encounter for antineoplastic chemotherapy (principal); C16.0 Malignant neoplasm of cardia; D50.0 Iron deficiency anemia secondary to blood loss (chronic); Z88.5 Allergy status to narcotic agent
CPT/HCPCS: 36415; 80053; 96367; 96375; 96413; 96415; 96417; J1100; J1453; J1642; J2469; J3490; J7050; J7070; J9171; J9263

== ENCOUNTER 2021-09-08 09:30 | Outpatient (CLI) | payer MEDICARE | END 2021-09-08 09:31 | disposition home or self-care (01) | LOC: BICMAMMO 09:30 | PROVIDERS: ATTEND Family Medicine | DX: Z12.31 Encounter for screening mammogram for malignant neoplasm of breast (principal); Z80.3 Family history of malignant neoplasm of breast | CPT/HCPCS: 77063; 77067 ==

== ENCOUNTER 2021-09-28 08:28 | Outpatient (CLI) | payer MEDICARE | END 2021-09-28 08:29 | disposition home or self-care (01) | LOC: CT 08:28 | PROVIDERS: ATTEND Internal Medicine Hematology & Oncology | DX: C16.0 Malignant neoplasm of cardia (principal); D50.0 Iron deficiency anemia secondary to blood loss (chronic) | CPT/HCPCS: 71260; 74177; 82565 ==

== ENCOUNTER 2021-10-17 06:10 | Emergency (ER) | payer OTHER, MEDICARE ==
[2021-10-17] MEDS ORDERED: Ketorolac Tromethamine 30 MG/ML VIAL ONE (07:25)
== END 2021-10-17 08:37 | disposition home or self-care (01) ==
LOC: ERS 06:10
DX: S93.601A Unspecified sprain of right foot, initial encounter (principal); S93.401A Sprain of unspecified ligament of right ankle, initial encounter; I10 Essential (primary) hypertension; Z87.891 Personal history of nicotine dependence; Z79.899 Other long term (current) drug therapy; V87.8XXA Person injured in other specified noncollision transport accidents involving motor vehicle (traffic), initial encounter
CPT/HCPCS: 96372; J1885

== ENCOUNTER 2021-12-15 09:41 | Outpatient (CLI) | payer OTHER | END 2021-12-15 09:42 | disposition home or self-care (01) | LOC: BICRAD 09:41 | PROVIDERS: ATTEND Nurse Practitioner Family | DX: Z48.812 Encounter for surgical aftercare following surgery on the circulatory system (principal); Z95.0 Presence of cardiac pacemaker | CPT/HCPCS: 71046 ==

== ENCOUNTER 2022-03-28 10:28 | Outpatient (CLI) | payer OTHER | END 2022-03-28 10:29 | disposition home or self-care (01) | LOC: BICMAMMO 10:28 | PROVIDERS: ATTEND Family Medicine | DX: M81.0 Age-related osteoporosis without current pathological fracture (principal); M85.851 Other specified disorders of bone density and structure, right thigh; M85.852 Other specified disorders of bone density and structure, left thigh | CPT/HCPCS: 77080 ==

== ENCOUNTER 2022-04-18 08:30 | Outpatient (CLI) | payer OTHER ==
[2022-04-18] MEDS ORDERED: Iopamidol-370 76% 500 ML 1 ML ONE (12:49)
== END 2022-04-18 08:31 | disposition home or self-care (01) ==
LOC: BICCT 08:30
PROVIDERS: ATTEND Internal Medicine Hematology & Oncology
DX: C16.0 Malignant neoplasm of cardia (principal)
CPT/HCPCS: 71260; 74177; 82565; Q9967

== ENCOUNTER 2022-06-06 09:27 | Outpatient (CLI) | payer OTHER ==
[~2022-06-06 09:27] MED LIST changes: -DEXTROSE 5% IVPB SCH; -DOCETAXEL IVPB SCH; +Iopamidol-370 76% 500 ML 1 ML ONE; -OXALIPLATIN IVPB SCH; -PALONOSETRON HCL 0.05 MG/ML 5 ML VIAL IVP SCH; -SODIUM CHLORIDE 0.9% IVPB SCH; -WATER IVPB SCH
== END 2022-06-06 09:28 | disposition home or self-care (01) ==
LOC: BICCT 09:27
PROVIDERS: ATTEND Internal Medicine Hematology & Oncology
DX: R91.8 Other nonspecific abnormal finding of lung field (principal); C16.9 Malignant neoplasm of stomach, unspecified
CPT/HCPCS: 71260; 82565; Q9967

== ENCOUNTER 2022-10-08 08:11 | Outpatient (CLI) | payer OTHER ==
[2022-10-08] MEDS ORDERED: Iopamidol-370 76% 500 ML MDV (1 ML CHARGE) ONE (17:09)
== END 2022-10-08 08:12 | disposition home or self-care (01) ==
LOC: BICCT 08:11
PROVIDERS: ATTEND Internal Medicine Hematology & Oncology
DX: C16.9 Malignant neoplasm of stomach, unspecified (principal); R91.1 Solitary pulmonary nodule
CPT/HCPCS: 71260; 74177; 82565; Q9967

== ENCOUNTER 2023-03-26 08:35 | Outpatient (CLI) | payer OTHER ==
[2023-03-26] MEDS ORDERED: Iopamidol 370 76% 100 ML VIAL ONE (09:32)
== END 2023-03-26 08:36 | disposition home or self-care (01) ==
LOC: CT 08:35
PROVIDERS: ATTEND Internal Medicine Hematology & Oncology
DX: C16.0 Malignant neoplasm of cardia (principal); R91.1 Solitary pulmonary nodule; J98.4 Other disorders of lung
CPT/HCPCS: 71260; 74177; 82565; Q9967

== ENCOUNTER 2024-02-14 08:24 | Outpatient (CLI) | payer OTHER | END 2024-02-14 08:25 | disposition home or self-care (01) | LOC: BICMAMMO 08:24 | PROVIDERS: ATTEND Family Medicine | DX: Z12.31 Encounter for screening mammogram for malignant neoplasm of breast (principal); Z80.3 Family history of malignant neoplasm of breast | CPT/HCPCS: 77063; 77067 ==

== ENCOUNTER 2024-04-13 07:10 | Outpatient (CLI) | payer OTHER | END 2024-04-13 07:11 | disposition home or self-care (01) | LOC: CT 07:10 | PROVIDERS: ATTEND Internal Medicine Hematology & Oncology | DX: C16.0 Malignant neoplasm of cardia (principal); R91.1 Solitary pulmonary nodule | CPT/HCPCS: 71260; 74177; 82565 ==

== ENCOUNTER 2024-12-04 07:59 | Outpatient (CLI) | payer OTHER | END 2024-12-04 08:00 | disposition home or self-care (01) | LOC: BICMAMMO 07:59 | PROVIDERS: ATTEND Family Medicine | DX: Z13.820 Encounter for screening for osteoporosis (principal); M81.0 Age-related osteoporosis without current pathological fracture; M85.89 Other specified disorders of bone density and structure, multiple sites | CPT/HCPCS: 77080 ==

== ENCOUNTER 2024-12-24 09:05 | Emergency (ER) | payer OTHER ==
[2024-12-24] MEDS ORDERED: Lidocaine/Transparent Dressing 1 EACH KIT ONE (10:08)
[2024-12-24 11:05] LABS: Hematocrit 30.0 % (36.0-47.0); Hemoglobin 9.4 g/dL (12.0-16.0); Mean Corpuscular Hemoglobin 27.5 pg (27.0-31.0); Mean Corpuscular Volume 87.7 fL (78.0-98.0); Platelet Count 206 10x3/uL (130-400); Red Blood Cell (RBC) Count 3.42 mill/uL (4.20-5.40); White Blood Cell (WBC) Count 50.27 10x3/uL (4.8-10.8)
[2024-12-24 11:12] LABS: ALT (SGPT) 63 U/L (Less than 34); AST (SGOT) 51 U/L (11-34); Albumin 3.1 g/dL (3.1-4.5); Alkaline Phosphatase 174 U/L (40-110); Anion Gap 13 mmol/L (10-20); BUN (Urea Nitrogen) 8 mg/dL (9.8-20.1); Bilirubin, Total 0.5 mg/dL (0.3-1.2); Calc. Creatinine Clearance 0 mL/min (70-130); Calcium 8.6 mg/dL (7.8-10.44); Carbon Dioxide 24 mmol/L (23-31); Chloride 102 mmol/L (98-107); Globulin 3.4 g/dL (2.4-3.5); Glucose 91 mg/dL (80-115); Potassium 3.1 mmol/L (3.5-5.1); Sodium 136 mmol/L (136-145)
[2024-12-24 11:14] LABS: INR-International Normal Ratio 1.1; Prothrombin Time 14.5 sec (12.0-14.7)
[2024-12-24 11:15] LABS: PTT 31.6 sec (22.9-36.1)
[2024-12-24 11:44] LABS: Anisocytosis SLIGHT = 6-15 cells HPF (0-5); Platelet Adequacy Comment Platelets Normal; Polychromasia MODERATE = 3-4 cells HPF (0-2); Reflex for Review?? YES; Smudge Cells 2.0 %; Toxic Granulation MODERATE
[2024-12-24] MEDS ORDERED: Iopamidol-370 76% 500 ML MDV (1 ML CHARGE) ONE (12:47)
== END 2024-12-24 13:10 | disposition home or self-care (01) ==
LOC: ERS 09:05
DX: J45.901 Unspecified asthma with (acute) exacerbation (principal); J22 Unspecified acute lower respiratory infection; C25.9 Malignant neoplasm of pancreas, unspecified; C16.9 Malignant neoplasm of stomach, unspecified; I10 Essential (primary) hypertension; Z95.0 Presence of cardiac pacemaker; Z55.6 Problems related to health literacy
CPT/HCPCS: 71046; 71275; 80053; 83605; 83880; 84484; 85025; 85610; 85730; 86850; 86900; 86901; 87040; 87426; 93005; J1642; 85060; 96360; 96361; J7620; Q9967

== ENCOUNTER 2024-12-28 00:05 | Emergency (ER) | payer OTHER | END 2024-12-28 01:49 | disposition home or self-care (01) | LOC: ERS 00:05 | DX: M79.604 Pain in right leg (principal); Z95.0 Presence of cardiac pacemaker ==

== ENCOUNTER 2025-02-03 08:55 | Outpatient (CLI) | payer OTHER ==
[2025-02-03] MEDS ORDERED: Iopamidol 370 76% 100 ML VIAL ONE (10:14)
== END 2025-02-03 08:56 | disposition home or self-care (01) ==
LOC: CT 08:55
PROVIDERS: ATTEND Internal Medicine Hematology & Oncology
DX: C16.0 Malignant neoplasm of cardia (principal); D50.0 Iron deficiency anemia secondary to blood loss (chronic); C25.0 Malignant neoplasm of head of pancreas; D70.8 Other neutropenia; K76.9 Liver disease, unspecified; R16.0 Hepatomegaly, not elsewhere classified; K76.0 Fatty (change of) liver, not elsewhere classified; Z79.899 Other long term (current) drug therapy; Z98.890 Other specified postprocedural states
CPT/HCPCS: 71260; 74177; J1642; Q9967

== ENCOUNTER 2025-04-08 09:04 | Outpatient (CLI) | payer OTHER ==
[2025-04-08] MEDS ORDERED: Iopamidol 370 76% 100 ML VIAL ONE (11:56)
== END 2025-04-08 09:05 | disposition home or self-care (01) ==
LOC: CT 09:04
PROVIDERS: ATTEND Internal Medicine Hematology & Oncology
DX: C25.0 Malignant neoplasm of head of pancreas (principal); C16.0 Malignant neoplasm of cardia; D50.0 Iron deficiency anemia secondary to blood loss (chronic); D70.8 Other neutropenia; R91.8 Other nonspecific abnormal finding of lung field; I25.10 Atherosclerotic heart disease of native coronary artery without angina pectoris; I51.7 Cardiomegaly; K76.0 Fatty (change of) liver, not elsewhere classified; K63.89 Other specified diseases of intestine; M89.9 Disorder of bone, unspecified; Z90.49 Acquired absence of other specified parts of digestive tract; Z79.899 Other long term (current) drug therapy; Z90.710 Acquired absence of both cervix and uterus; Z95.0 Presence of cardiac pacemaker; Z98.890 Other specified postprocedural states
CPT/HCPCS: 71260; 74177; J1642